=== PATIENT | male | born 1950 | race Caucasian/White ===

== ENCOUNTER 2020-04-15 17:23 | Emergency (ER) | payer MEDICARE, OTHER ==
[2020-04-15] MEDS ORDERED: Meclizine 25 MG Tab PO ONE ×2 (17:24→18:03)
[2020-04-15] MEDS ORDERED: Ondansetron 4 MG Tab.DIS PO ONE (17:24)
[2020-04-15] MEDS ORDERED: Sodium Chloride 0.9% 10 ML Syringe FLUSH PRN (17:46)
[2020-04-15] MEDS ORDERED: Sodium Chloride 0.9% 1,000 ML IV ONE ×2 (18:03→19:58)
[2020-04-15] MEDS ORDERED: Ondansetron 4 MG/2 ML SDV IVPUSH ONE (18:03)
[2020-04-15] MEDS ORDERED: Sodium Chloride 0.9% 1,000 ML IV SCH (18:15)
--- NOTE | 2020-04-15 19:22 | EDM.PDOC ---
ED HPI GENERAL MEDICAL PROBLEM - General Chief Complaint: Neuro Symptoms/Deficits Stated Complaint: DIZZINESS, NAUSEA, VOMITING Time Seen by Provider: 04/15/20 17:45 Source of Information: Reports: Patient, Family (Patient's ) History Limitations: Reports: No Limitations - History of Present Illness INITIAL COMMENTS - FREE TEXT/NARRATIVE: 70-year-old male who reports that at 4 AM today he awoke from sleep and noted that when he opened his eyes that the room was spinning. He has some nausea associated with this and dry heaving. He did not have any headache at that time nor did he have any chest pain or shortness of breath. He did not feel any palpitations. He did not feel any weakness or numbness one side of his body versus the other. He reports that the dizziness seemed to persist all through the day area he has been resting pretty much all day and he is noted that with rest it seems to be controlled but when he moves his head or tries to get up and move around that the dizziness is worse. He also has developed a slight left- sided headache that he rates as a 3/10. It is dull and aching. No neck pain or stiffness associated with this. He has developed no chest pain or shortness of breath. He reports that he has not been eating or drinking that well today as he has basically felt nauseated all through the day. No nasal congestion. No sore throat. No trouble swallowing. No vision problems. There are no other associated signs or symptoms. There are no other modifying factors. Onset: Today Duration: Constant, Other (4 AM he states that it may have gotten somewhat better through the day.) Location: Reports: Head Quality: Reports: Ache, Dull Severity: Mild Improves with: Reports: Rest Worsens with: Reports: Movement Context: Reports: Other (As above.) Associated Symptoms: Reports: Headaches, Nausea/Vomiting Treatments RESIDENTIAL [employer]IST: Reports: Other (see below) (Nothing.) L headache Pain Score (Numeric/FACES): 3 - Related Data Allergies Allergy/AdvReac Type Severity Reaction Status Date / Time No Known Allergies Allergy Verified 04/15/20 17:43 Home Meds: Home Meds Aspirin 81 mg PO DAILY 04/15/20 [History] Glimepiride 4 mg PO WITHBREAKFAST 04/15/20 [History] Simvastatin 20 mg PO BEDTIME 04/15/20 [History] Valsartan/Hydrochlorothiazide [Valsartan-Hctz 160-12.5 mg Tab] 1 tab DAILY 04/15/20 [History] metFORMIN [Glucophage] 1,000 mg PO BIDMEALS 04/15/20 [History] Past Medical History Cardiovascular History: Reports: High Cholesterol, Hypertension Genitourinary History: Reports: Prostate Disorder, Other (See Below) Other Genitourinary History: prostate CA, has had radiation for same. Musculoskeletal History: Reports: Arthritis, Fracture Other Musculoskeletal History: hx R wrist fx, fx toe Neurological History: Reports: Concussion, Migraines Endocrine/Metabolic History: Reports: Diabetes, Type II Oncologic (Cancer) History: Reports: Prostate - Infectious Disease History Infectious Disease History: Reports: Chicken Pox, Measles, Mumps - Past Surgical History HEENT Surgical History: Reports: Adenoidectomy, Tonsillectomy Male Surgical History: Reports: Prostatectomy Musculoskeletal Surgical History: Reports: Knee Replacement Other Musculoskeletal Surgeries/Procedures:: R knee replacement Social & Family History - Tobacco Use Tobacco Use Status *Q: Never Tobacco User - Caffeine Use Caffeine Use: Reports: Coffee, Soda, Tea - Alcohol Use Alcohol Use History: Yes Days Per Week of Alcohol Use: 1 Number of Drinks Per Day: 3 Total Drinks Per Week: 3 - Recreational Drug Use Recreational Drug Use: No - Living Situation & Occupation Living situation: Reports: , with Spouse Occupation: Retired ED ROS GENERAL - Review of Systems Review Of Systems: See Below Constitutional: Reports: No Symptoms HEENT: Reports: No Symptoms Respiratory: Reports: No Symptoms Cardiovascular: Reports: No Symptoms GI/Abdominal: Reports: Nausea, Vomiting : Reports: No Symptoms Musculoskeletal: Reports: No Symptoms Skin: Reports: No Symptoms Neurological: Reports: Dizziness, Headache Psychiatric: Reports: No Symptoms Hematologic/Lymphatic: Reports: No Symptoms (No chronic anticoagulation.) Immunologic: Reports: No Symptoms ED EXAM, DIZZINESS - Physical Exam Exam: See Below Exam Limited By: No Limitations General Appearance: Alert, WD/WN, Mild Distress Eye Exam: Bilateral Eye: EOMI, Nystagmus (Mild horizontal nystagmus with lateral gaze), PERRL Nystagmus: reproducible, short duration Ears: Normal External Exam, Normal Canal, Hearing Grossly Normal, Normal TMs Nose: Normal Inspection, Normal Mucosa, No Blood Throat/Mouth: Normal Inspection, Normal Lips, Normal Teeth Head Exam: Atraumatic, Normocephalic Vertigo: reproducible, short duration Neck: Normal Inspection, Supple, Non-Tender, Full Range of Motion Respiratory/Chest: No Respiratory Distress, Lungs Clear, Normal Breath Sounds, No Accessory Muscle Use, Chest Non-Tender Cardiovascular: Normal Peripheral Pulses, Regular Rate, Rhythm, No Murmur GI/Abdominal: Normal Bowel Sounds, Soft, Non-Tender, No Mass Neurological: Alert, Normal Mood/Affect, Normal Dorsiflexion, CN II-XII Intact, Normal Plantar Flexion, No Motor/Sensory Deficits, Oriented x 3 Back Exam: Normal Inspection, Full Range of Motion Extremities: Normal Inspection, Normal Range of Motion, Non-Tender, No Pedal Edema, Normal Capillary Refill Psychiatric: Normal Affect Skin Exam: Warm, Dry, Intact, Normal Color, No Rash #1 Interpretation EKG Date: 04/15/20 Time: 17:31 Rhythm: NSR Rate (Beats/Min): 73 [place]: LAD-Left [place] Deviation QRS: Normal (Incomplete left bundle-branch block with LVH) ST-T: Other (ST-T changes related to LVH) QT: Normal Comparison: NA - No Prior EKG (No previous EKGs.) Course - Vital Signs Last Recorded V/S: Last Vital Signs Temp 36.6 C 04/15/20 17:23 Pulse 82 04/15/20 21:01 Resp 16 04/15/20 21:01 BP 121/74 04/15/20 21:01 Pulse Ox 98 04/15/20 21:01 Orthostatic Blood Pressure [ 127/71 lying] Orthostatic Blood Pressure [ 121/74 Standing] Orthostatic Blood Pressure [ 139/74 Sitting] - Orders/Labs/Meds Orders: Active Orders 24 hr Category Date Time Status Accu Check [Blood Glucose Check, Bedside] [RC] ONETIME Care 04/15/20 17:47 Active EKG Documentation Completion [RC] ASDIRECTED Care 04/15/20 17:47 Active Head wo Cont [CT] Stat Exams 04/15/20 18:05 Taken Sodium Chloride 0.9% [Normal Saline] 1,000 ml Med 04/15/20 18:15 Active IV ASDIRECTED Sodium Chloride 0.9% [Saline Flush] Med 04/15/20 17:46 Active 10 ml FLUSH ASDIRECTED PRN Peripheral IV Insertion Adult [OM.PC] Routine Oth 04/15/20 17:46 Ordered EKG 12 Lead [EK] Routine Ther 04/15/20 17:46 Ordered Medication Orders Sodium Chloride (Normal Saline) 1,000 mls @ 100 mls/hr IV ASDIRECTED RUFINA Last Admin: 04/15/20 19:24 Dose: 100 mls/hr Documented by: TK Sodium Chloride (Saline Flush) 10 ml FLUSH ASDIRECTED PRN PRN Reason: Keep Vein Open Last Admin: 04/15/20 17:50 Dose: 10 ml Documented by: RICHARD Labs: Laboratory Tests 04/15/20 04/15/20 04/15/20 Range/Units 17:28 17:30 17:30 WBC 10.6 H (3.2-10.1) x10-3/uL RBC 4.76 (3.90-5.90) x10(6)uL Hgb 15.5 (12.9-17.7) g/dL Hct 45.7 (38.3-50.1) % MCV 96.1 (80.8-98.7) fL MCH 32.6 (27.0-33.3) pg MCHC 34.0 (28.7-35.3) g/dL RDW 12.5 (12.4-15.0) % Plt Count 246 (117-477) x10(3)uL MPV 8.4 (6.7-11.0) fL Add Manual Diff Yes Neutrophils % (Manual) 86 H (46-82) % Lymphocytes % (Manual) 6 L (13-37) % Monocytes % (Manual) 8 (4-12) % Sodium 137 (135-145) mmol/L Potassium 4.1 (3.5-5.3) mmol/L Chloride 102 (100-110) mmol/L Carbon Dioxide 24 (21-32) mmol/L BUN 23 H (7-18) mg/dL Creatinine 0.9 (0.70-1.30) mg/dL Est Cr Clr Drug Dosing 72.83 mL/min Estimated GFR (MDRD) > 60 (>60) BUN/Creatinine Ratio 25.6 H (9-20) Glucose 148 H (80-116) mg/dL POC Glucose 135 H (74-100) mg/dL Calcium 9.0 (8.6-10.2) mg/dL Total Bilirubin 0.7 (0.1-1.3) mg/dL AST 18 (5-25) IU/L ALT 24 (12-36) U/L Alkaline Phosphatase 72 (56-112) IU/L Troponin I (4.0-60.3) pg/mL Total Protein 7.0 (6.0-8.0) g/dL Albumin 3.5 (3.2-4.6) g/dL Globulin 3.5 g/dL Albumin/Globulin Ratio 1.0 Urine Color (YELLOW) Urine Appearance (CLEAR) Urine pH (5.0-6.5) Ur Specific [place] (1.010-1.025) Urine Protein (NEGATIVE) mg/dL Urine Glucose (UA) (NORMAL) mg/dL Urine Ketones (NEGATIVE) mg/dL Urine Occult Blood (NEGATIVE) Urine Nitrite (NEGATIVE) Urine Bilirubin (NEGATIVE) Urine Urobilinogen (NEGATIVE) mg/dL Ur Leukocyte Esterase (NEGATIVE) Urine RBC (0-5) Urine WBC (0-5) Ur Squamous Epith Cells (NS,R,O) Urine Bacteria (NS) 04/15/20 04/15/20 Range/Units 17:30 19:32 WBC (3.2-10.1) x10-3/uL RBC (3.90-5.90) x10(6)uL Hgb (12.9-17.7) g/dL Hct (38.3-50.1) % MCV (80.8-98.7) fL MCH (27.0-33.3) pg MCHC (28.7-35.3) g/dL RDW (12.4-15.0) % Plt Count (117-477) x10(3)uL MPV (6.7-11.0) fL Add Manual Diff Neutrophils % (Manual) (46-82) % Lymphocytes % (Manual) (13-37) % Monocytes % (Manual) (4-12) % Sodium (135-145) mmol/L Potassium (3.5-5.3) mmol/L Chloride (100-110) mmol/L Carbon Dioxide (21-32) mmol/L BUN (7-18) mg/dL Creatinine (0.70-1.30) mg/dL Est Cr Clr Drug Dosing mL/min Estimated GFR (MDRD) (>60) BUN/Creatinine Ratio (9-20) Glucose (80-116) mg/dL POC Glucose (74-100) mg/dL Calcium (8.6-10.2) mg/dL Total Bilirubin (0.1-1.3) mg/dL AST (5-25) IU/L ALT (12-36) U/L Alkaline Phosphatase (56-112) IU/L Troponin I 5.0 (4.0-60.3) pg/mL Total Protein (6.0-8.0) g/dL Albumin (3.2-4.6) g/dL Globulin g/dL Albumin/Globulin Ratio Urine Color Yellow (YELLOW) Urine Appearance Clear (CLEAR) Urine pH 5.0 (5.0-6.5) Ur Specific [place] 1.030 H (1.010-1.025) Urine Protein Negative (NEGATIVE) mg/dL Urine Glucose (UA) Normal (NORMAL) mg/dL Urine Ketones 150 H (NEGATIVE) mg/dL Urine Occult Blood Negative (NEGATIVE) Urine Nitrite Negative (NEGATIVE) Urine Bilirubin Negative (NEGATIVE) Urine Urobilinogen Normal (NEGATIVE) mg/dL Ur Leukocyte Esterase Negative (NEGATIVE) Urine RBC Not seen (0-5) Urine WBC 0-5 (0-5) Ur Squamous Epith Cells Few H (NS,R,O) Urine Bacteria Rare H (NS) Meds: Medications Generic Name Dose Route Start Last Admin Trade Name Freq PRN Reason Stop Dose Admin Sodium Chloride 1,000 mls @ 100 mls/hr 04/15/20 18:15 04/15/20 19:24 Normal Saline IV 100 mls/hr ASDIRECTED RUFINA Administration Sodium Chloride 10 ml 04/15/20 17:46 04/15/20 17:50 Saline Flush FLUSH 10 ml ASDIRECTED PRN Administration Keep Vein Open Discontinued Medications Generic Name Dose Route Start Last Admin Trade Name Freq PRN Reason Stop Dose Admin Diazepam 2.5 mg 04/15/20 18:05 04/15/20 18:27 Valium IVPUSH 04/15/20 18:06 2.5 mg ONETIME ONE Administration Sodium Chloride 1,000 mls @ 999 mls/hr 04/15/20 18:03 04/15/20 18:23 Normal Saline IV 04/15/20 19:03 999 mls/hr .BOLUS ONE Administration Sodium Chloride 1,000 mls @ 999 mls/hr 04/15/20 19:58 04/15/20 19:59 Normal Saline IV 04/15/20 20:58 999 mls/hr .BOLUS ONE Administration Meclizine HCl 25 mg 04/15/20 18:03 04/15/20 18:34 Antivert PO 04/15/20 18:04 25 mg ONETIME ONE Administration Ondansetron HCl 4 mg 04/15/20 18:03 04/15/20 18:24 Zofran IVPUSH 04/15/20 18:04 4 mg ONETIME ONE Administration - Radiology Interpretation Free Text/Narrative:: CT scan of the head showed no acute intracranial abnormality per the [facility] radiologist. - Re-Assessments/Exams Free Text/Narrative Re-Assessment/Exam: 04/15/20 20:00: Patient's blood tests were reassuring except he did have an elevated BUN and creatinine consistent with dehydration which he also has by physical exam. The CT scan of his head was normal. His EKG was reassuring. The patient feels much improved. He still has some slight dizziness with standing. He was able to urinate. There were no orthostatic changes on his blood pressure or pulse. I will give the patient another liter of normal saline IV. 04/15/20 21:05: The patient walked and did well. His dizziness as essentially resolved. No more nausea. No more vomiting. His urine showed concentrated urine with some ketones that was otherwise. He appears to have vertigo probably related to a viral infection. He does have some lower back pain but this is chronic. He is stable for discharge at this point. I will discharge the patient with take-home packs of both meclizine and Zofran. He is to rest and drink plenty of fluids. Precautions and reasons for return to the emergency department were discussed with the patient while he was in the emergency department and were detailed in the patient's discharge instructions. He feels comfortable with plan for discharge. Departure - Departure Time of Disposition: 21:20 Disposition: Home, Self-Care 01 Condition: Good (Improved) Clinical Impression: Vertigo, Dehydration, moderate - Discharge Information Instructions: Dehydration, Adult, [id number], Dizziness, [id number], Rehydration, Adult Referrals: Balta Ruiz MD [Primary Care Provider] - Forms: ED Department Discharge Additional Instructions: Your blood tests were reassuring. They did show some evidence of dehydration. Your urine test showed no evidence of infection but it did show evidence of dehydration. Your EKG was normal. The CT scan of your head showed no evidence of stroke or bleeding. I am not sure of the exact cause of your vertigo or dizziness. However, I feel that it is likely due to a viral infection of your inner ear. This should resolve on its own. It should also resolve over the next few days. You should increase your fluid intake. Rest. Medication as prescribed (Zofran 4 mg ODT, meclizine 25 mg). Follow-up with your primary doctor if your dizziness is persisting at the beginning of this next week. Back to the [facility] department for severe headache, localized area of weakness or numbness uncontrolled dizziness, unrelenting vomiting, high fever or any other concerning sign or symptom. Sepsis Event Note (ED) - Evaluation Sepsis Screening Result: No Definite Risk - Focused Exam Vital Signs: Vital Signs Temp Pulse Resp BP Pulse Ox 04/15/20 21:01 82 16 121/74 98 04/15/20 19:53 81 18 127/71 96 04/15/20 19:01 81 18 155/75 H 94 L 04/15/20 18:34 84 18 137/81 93 L 04/15/20 18:01 75 18 157/80 H 97 04/15/20 17:30 89 18 144/77 H 98 04/15/20 17:23 36.6 C 73 18 151/81 H 99 - My Orders Last 24 Hours: My Active Orders 04/15/20 17:46 Sodium Chloride 0.9% [Saline Flush] 10 ml FLUSH ASDIRECTED PRN Peripheral IV Insertion Adult [OM.PC] Routine EKG 12 Lead [EK] Routine 04/15/20 17:47 Accu Check [Blood Glucose Check, Bedside] [RC] ONETIME EKG Documentation Completion [RC] ASDIRECTED 04/15/20 18:05 Head wo Cont [CT] Stat 04/15/20 18:15 Sodium Chloride 0.9% [Normal Saline] 1,000 ml IV ASDIRECTED - Assessment/Plan Last 24 Hours: My Active Orders 04/15/20 17:46 Sodium Chloride 0.9% [Saline Flush] 10 ml FLUSH ASDIRECTED PRN Peripheral IV Insertion Adult [OM.PC] Routine EKG 12 Lead [EK] Routine 04/15/20 17:47 Accu Check [Blood Glucose Check, Bedside] [RC] ONETIME EKG Documentation Completion [RC] ASDIRECTED 04/15/20 18:05 Head wo Cont [CT] Stat 04/15/20 18:15 Sodium Chloride 0.9% [Normal Saline] 1,000 ml IV ASDIRECTED
== END 2020-04-15 21:36 | disposition home or self-care (01) ==
LOC: FB.ED 17:23
DX: E86.0 Dehydration (principal); E78.00 Pure hypercholesterolemia, unspecified; I10 Essential (primary) hypertension; E11.9 Type 2 diabetes mellitus without complications; M19.90 Unspecified osteoarthritis, unspecified site; Z79.84 Long term (current) use of oral hypoglycemic drugs; Z79.82 Long term (current) use of aspirin; Z79.899 Other long term (current) drug therapy
CPT/HCPCS: 36415; 70450; 80053; 81001; 82962; 84484; 85025; 93005; 96374; 96375; 99284; A9270; J2405; J3360; J7030